=== PATIENT | female | born 1990 | race Caucasian/White ===

== ENCOUNTER 2017-01-22 14:12 | Emergency (ER) | payer OTHER ==
[~2017-01-22] VITALS: Ht 152.4 cm; Wt 63.1 kg
[2017-01-22] MEDS ORDERED: NARCAN4 MG NS (18:12)
[2017-01-22 18:20] VITALS: BP 124/89
== END 2017-01-22 18:21 | disposition home or self-care (01) ==
LOC: EME 14:12
DX: T40.1X1A Poisoning by heroin, accidental (unintentional), initial encounter (principal); F17.200 Nicotine dependence, unspecified, uncomplicated
CPT/HCPCS: 99281; 99284

== ENCOUNTER 2018-02-17 13:39 | Emergency (ER) | payer OTHER ==
[~2018-02-17] VITALS: Ht 152.4 cm; Wt 65.4 kg
[~2018-02-17 13:39] MED LIST: NARCAN4 MG NS
[2018-02-17 15:01] LABS: HEMOGLOBIN 13.5 G/DL (11.9-15.5); MCH 29.2 PG (29.0-34.0); MCHC 35.5 G/DL (30.0-36.0); MCV 82.1 FL (83-99); PLATELET COUNT 185 K/uL (156-360); RBC DIS.WIDTH-CV 12.6 % (11.8-14.6); RBC DIS.WIDTH-SD 37.5 % (39-53); RED BLOOD COUNT 4.63 M/uL (3.80-5.20); WHITE BLOOD COUNT 6.3 K/uL (4.1-10.2)
[2018-02-17 15:10] LABS: ALBUMIN 4.4 g/dL (3.2-4.8); CHLORIDE 107 mEq/L (99-109); POTASSIUM 4.1 mEq/L (3.7-5.4); SODIUM 141 mEq/L (136-147)
[2018-02-17 15:12] LABS: GLUCOSE 97 mg/dL (70-99); TOTAL PROTEIN 6.7 g/dL (6.4-8.3)
[2018-02-17 15:14] LABS: TOTAL BILIRUBIN 0.3 mg/dL (0.0-1.0)
[2018-02-17 15:16] LABS: ALKALINE PHOSPHATASE 66 IU/L (3-129); CREATININE 0.9 mg/dL (0.6-1.3); GFR ESTIMATE (CALCULATED) > 59 mL/min/
[2018-02-17 15:17] LABS: AST (GOT) 15 IU/L (2-34); UREA NITROGEN (BUN) 13 mg/dL (9-23)
[2018-02-17 15:19] LABS: ALT (GPT) 7 IU/L (3-49); LIPASE 29 U/L (1.0-51.0)
[2018-02-17 15:28] LABS: QUANTITATIVE HCG < 4.0 MIU/ML
[2018-02-17 17:38] LABS: APPEARANCE CLEAR ((CLEAR)); BILIRUBIN NEGATIVE; BLOOD MODERATE; COLOR STRAW ((YELLOW)); GLUCOSE (STRIP) NEGATIVE; KETONES NEGATIVE; LEUKOCYTES NEGATIVE; NITRITE NEGATIVE; PROTEIN (STRIP) NEGATIVE; SPECIFIC GRAVITY 1.045 (1.000-1.030); UROBILINOGEN 0.2 MG/DL (0.2-1.0)
[2018-02-17 17:43] LABS: BACTERIA NONE SEEN /HPF; EPITHELIAL CELLS 1+ /HPF; MUCUS TRACE /LPF; RED BLOOD CELLS 0-5 /HPF (0-5); UCUL ADDED? NO; WHITE BLOOD CELLS 0-5 /HPF (0-5)
[2018-02-17] MEDS ORDERED: REGLAN10 MG PO (17:54)
[2018-02-17 18:13] VITALS: BP 107/65
[2018-02-17 19:48] LABS: SOURCE SWAB
== END 2018-02-17 18:15 | disposition home or self-care (01) ==
LOC: EME 13:39
PROVIDERS: Nurse Practitioner Family; Physician Assistant
DX: R10.31 Right lower quadrant pain (principal); F11.23 Opioid dependence with withdrawal; J45.909 Unspecified asthma, uncomplicated; F32.9 Major depressive disorder, single episode, unspecified; F31.9 Bipolar disorder, unspecified; Z97.5 Presence of (intrauterine) contraceptive device; Z72.0 Tobacco use; Z88.1 Allergy status to other antibiotic agents
CPT/HCPCS: 74177; 76856; 80053; 81003; 83690; 84702; 85027; 87491; 87591; 99281; 99285; J0780; J1200; J1885; J7030

== ENCOUNTER 2018-03-20 17:35 | Emergency (ER) | payer OTHER ==
[~2018-03-20] VITALS: Ht 152.4 cm; Wt 68.4 kg
[~2018-03-20 17:35] MED LIST changes: +REGLAN10 MG PO
[2018-03-20 18:59] LABS: HEMATOCRIT 39.8 % (36.0-46.0); HEMOGLOBIN 13.7 G/DL (11.9-15.5); MCH 28.9 PG (29.0-34.0); MCHC 34.4 G/DL (30.0-36.0); PLATELET COUNT 249 K/uL (156-360); RBC DIS.WIDTH-CV 13.4 % (11.8-14.6); RBC DIS.WIDTH-SD 40.4 % (39-53); RED BLOOD COUNT 4.74 M/uL (3.80-5.20)
[2018-03-20 19:09] LABS: CHLORIDE 106 mEq/L (99-109); POTASSIUM 4.2 mEq/L (3.7-5.4); SODIUM 141 mEq/L (136-147)
[2018-03-20 19:10] LABS: GLUCOSE 101 mg/dL (70-99)
[2018-03-20 19:14] LABS: CREATININE 0.8 mg/dL (0.6-1.3); GFR ESTIMATE (CALCULATED) > 59 mL/min/; SERUM ETHYL ALCOHOL < 10 mg/dL
[2018-03-20 19:15] LABS: UREA NITROGEN (BUN) 16 mg/dL (9-23)
[2018-03-20 19:44] LABS: AMPHETAMINE NEGATIVE (500 ng/mL); BARBITURATES NEGATIVE (200 ng/mL); BENZODIAZEPINES PRESUMPTIVE POSITIVE (150 ng/mL); BUPRENORPHINE NEGATIVE (10 ng/mL); COCAINE NEGATIVE (150 ng/mL); METHADONE NEGATIVE (200 ng/mL); METHAMPHETAMINE NEGATIVE (500 ng/mL); OPIATES (MORPHINE) NEGATIVE (100 ng/mL); OXYCODONE NEGATIVE (100 ng/mL); PHENCYCLIDINE NEGATIVE (25 ng/mL); PROPOXYPHENE NEGATIVE (300 ng/mL); THC CANNABINOIDS NEGATIVE (50 ng/mL); TRICYCLIC ANTIDEPRESSANTS PRESUMPTIVE POSITIVE (300 ng/mL)
[2018-03-20 20:15] LABS: BENZODIAZEPINES, URINE SCREEN Negative (200 ng/mL)
[2018-03-20 21:49] VITALS: BP 119/82
== END 2018-03-20 21:51 | disposition home or self-care (01) ==
LOC: EME 17:35
DX: F32.9 Major depressive disorder, single episode, unspecified (principal); F11.20 Opioid dependence, uncomplicated; F43.10 Post-traumatic stress disorder, unspecified; J45.909 Unspecified asthma, uncomplicated; G89.29 Other chronic pain; Z88.1 Allergy status to other antibiotic agents; F17.200 Nicotine dependence, unspecified, uncomplicated
CPT/HCPCS: 80048; 84999; 85027; 90839; 99281; 99285; G0480